=== PATIENT | male | born 1965 | race Caucasian/White ===

== ENCOUNTER → 2017-05-08 | Outpatient (CLI) | payer OTHER ==
[2017-05-08 14:21] LABS: HEMATOCRIT 25.6 % (42.0-52.0); HEMOGLOBIN 8.3 g/dl (14.0-18.0); MEAN CELL VOLUME 89.2 fl (80.0-94.0); MEAN CORPUSCULAR HGB 28.9 pg (27.0-31.0); MEAN CORPUSCULAR HGB CONC 32.4 g/dl (33.0-37.0); MEAN PLATELET VOLUME 11.2 fl (9.6-12.3); NUCLEATED RED BLOOD CELL 1.7 10*3/uL (0.0-0.0); NUCLEATED RED BLOOD CELL 4.9 % (0.0-0.0); PLATELET COUNT AUTOMATED 566 10*3/uL (130-400); RED BLOOD COUNT 2.87 10*6/uL (4.50-5.90); RED CELL DISTRI WIDTH 18.6 % (0-14.5); WHITE BLOOD COUNT 34.6 10*3/uL (4.8-10.8)
[2017-05-08 14:40] LABS: ACT PARTIAL THROMBO TIME 29.5 SECONDS (20.8-31.5)
[2017-05-08 14:41] LABS: ALKALINE PHOSPHATASE 125 U/L (45-117); BILIRUBIN, DIRECT 0.1 mg/dL (0.0-0.2); BUN 36 mg/dl (7-24); CHLORIDE 105 mmol/L (98-107); POTASSIUM 5.4 mmol/L (3.5-5.1); SGOT/AST 14 IU/L (3-35); SGPT/ALT 16 U/L (12-78); SODIUM 136 mmol/L (136-145); TOTAL PROTEIN 6.3 gm/dL (6.4-8.2); URIC ACID 4.7 mg/dL (3.5-7.2)
[2017-05-08 14:43] LABS: BASOPHILS 25 % (0-1); TOTAL CELLS COUNTED 100 #CELLS
[2017-05-08 14:51] LABS: OVALOCYTES FEW
[2017-05-08 14:53] LABS: SPHEROCYTES FEW
[2017-05-08 14:54] LABS: PLATELET SUFFICIENCY HIGH (NORMAL)
== END | disposition home or self-care (01) ==
LOC: LAB 13:56
DX: C92.10 Chronic myeloid leukemia, BCR/ABL-positive, not having achieved remission (principal); R79.1 Abnormal coagulation profile